=== PATIENT | female | born 1995 | race Caucasian/White ===

== ENCOUNTER 2016-10-24 14:25 | Emergency (ER) | payer MEDICAID ==
[~2016-10-24] VITALS: Ht 157.5 cm; Wt 52.0 kg
[2016-10-24 15:14] VITALS: BP 120/61
== END 2016-10-24 18:07 | disposition left against medical advice (07) ==
LOC: ER 17:59
DX: Z11.1 Encounter for screening for respiratory tuberculosis (principal); Z53.21 Procedure and treatment not carried out due to patient leaving prior to being seen by health care provider